=== PATIENT | female | born 1995 | race Caucasian/White ===

== ENCOUNTER → 2021-09-02 | Outpatient (CLI) | payer OTHER, BC ==
[~2021-09-02] MED LIST: AZIT250 PO
== END | disposition home or self-care (01) ==
LOC: LAB SHORT 12:25 → LAB 12:25
DX: Z34.03 Encounter for supervision of normal first pregnancy, third trimester (principal); Z3A.36 36 weeks gestation of pregnancy
CPT/HCPCS: 87081; 87150

== ENCOUNTER 2021-09-25 06:34 | Inpatient (IN) | payer OTHER, BC ==
[~2021-09-25] VITALS: Ht 154.9 cm; Wt 87.7 kg
[2021-09-25] MEDS ORDERED: PRENATAL TABLE1 EAC2 PO (07:53)
[2021-09-25] MEDS ORDERED: OMEP20ER PO (07:54)
[2021-09-25 08:06] LABS: BASOPHILS ABSOLUTE AUTO 0.04 K/mm3 (0.00-0.23); BASOPHILS PERCENT AUTO 0 % (0-2); EOSINOPHILS ABSOLUTE AUTO 0.03 K/mm3 (0.00-0.68); EOSINOPHILS PERCENT AUTO 0 % (0-6); Hematocrit 38.7 % (33.0-51.0); Hemoglobin 13.5 g/dL (11.5-16.0); IMMATURE GRAN ABSOLUTE AUTO 0.16 K/mm3 (0.00-0.10); IMMATURE GRAN PERCENT AUTO 2 % (0-1); LYMPHOCYTES ABSOLUTE AUTO 1.23 K/mm3 (0.84-5.20); LYMPHOCYTES PERCENT AUTO 12 % (21-46); MONOCYTES ABSOLUTE AUTO 0.63 K/mm3 (0.16-1.47); MONOCYTES PERCENT AUTO 6 % (4-13); Mean Corpuscular HGB 30.6 pg (26.0-34.0); Mean Corpuscular HGB Conc 34.9 g/dL (31.5-36.5); Mean Corpuscular Volume 88 fL (80-100); Mean Platelet Volume 11.7 fL (9.1-12.4); NEUTROPHILS ABSOLUTE AUTO 7.86 K/mm3 (1.96-9.15); NEUTROPHILS PERCENT AUTO 79 % (41-73); Platelet Count 147 K/mm3 (150-400); RDW Coefficient Variation 13.6 % (11.7-14.2); RDW Standard Deviation 43.2 fL (35.1-46.3); Red Blood Cell Count 4.41 M/mm3 (3.80-5.20); White Blood Cell Count 9.95 K/mm3 (4.00-11.30)
[2021-09-25 08:56] LABS: Influenza A, PCR NEGATIVE (NEGATIVE); Influenza B, PCR NEGATIVE (NEGATIVE); Resp Syncytial Virus, PCR NEGATIVE (NEGATIVE); SARS-Cov-2 (COVID-19) PCR, MMC NEGATIVE (NEGATIVE)
[2021-09-26 05:51] LABS: BASOPHILS ABSOLUTE AUTO 0.03 K/mm3 (0.00-0.23); BASOPHILS PERCENT AUTO 0 % (0-2); EOSINOPHILS ABSOLUTE AUTO 0.04 K/mm3 (0.00-0.68); EOSINOPHILS PERCENT AUTO 0 % (0-6); Hematocrit 33.4 % (33.0-51.0); Hemoglobin 11.7 g/dL (11.5-16.0); IMMATURE GRAN ABSOLUTE AUTO 0.13 K/mm3 (0.00-0.10); IMMATURE GRAN PERCENT AUTO 1 % (0-1); LYMPHOCYTES ABSOLUTE AUTO 1.11 K/mm3 (0.84-5.20); LYMPHOCYTES PERCENT AUTO 8 % (21-46); MONOCYTES ABSOLUTE AUTO 0.96 K/mm3 (0.16-1.47); MONOCYTES PERCENT AUTO 7 % (4-13); Mean Corpuscular Volume 89 fL (80-100); Mean Platelet Volume 11.9 fL (9.1-12.4); NEUTROPHILS PERCENT AUTO 85 % (41-73); Platelet Count 127 K/mm3 (150-400); RDW Coefficient Variation 13.6 % (11.7-14.2); RDW Standard Deviation 43.9 fL (35.1-46.3); Red Blood Cell Count 3.77 M/mm3 (3.80-5.20); White Blood Cell Count 14.77 K/mm3 (4.00-11.30)
[2021-09-26] MEDS ORDERED: IBUP800 PO (08:33)
[2021-09-26] MEDS ORDERED: ACET500 PO (08:33)
--- NOTE | 2021-09-26 11:14 | NUR ---
CHELO-TRANSPLANTER ORCHID HERE TO SEE PATIENT
--- NOTE | 2021-09-26 14:32 | NUR ---
PT STATES NIPPLES ARE EXTREMELY SORE USING LANSINOH AFTER EACH FEED, GEL PADS GIVEN AND SHE IS USING A NIPPLE SHIELD, ASSESSED NB LATCH LIPS FLARED GOOD LATCH BUT APPEARS TO BE TONGUE THRUSTING AND PUSHING OUT THE NIPPLE ENCOURAGED TO CONTINUE PUTTING BABY BACK TO BREAST AND TO WATCH THAT NB LIPS ARE FLARED AROUND NIPPLE
--- NOTE | 2021-09-26 15:07 | NUR ---
REPT TO Catrachito CUELLAR RN
--- NOTE | 2021-09-26 17:31 | NUR ---
SPOKE WITH DR UMANZOR VIA PHONE. PATIENT REQUESTING A DISCHARGE HOME. DR UMANZOR STATKES IT'S OK FOR HER TO GO HOME AND SHE WILL PUT IN A DISCHARGE ORDER. DR UMANZOR STATES PATIENT CAN TAKE IBUPROFEN OVER THE COUNTER FOR PAIN AND CAN HAVE NEWMANS OINTMENT FROM THE [facility]
--- NOTE | 2021-09-26 20:00 | NUR ---
RN WALKED PT OUT TO CAR. PT AMBULATED WELL. FOB HAS NB IN CAR SEAT. NB PLACED IN CAR REAR FACED. PT IS AWARE OF POST FOLLOW UP VISIT/NB VISIT.
== END 2021-09-26 19:18 | disposition home or self-care (01) | DRG 807 ==
LOC: OBS 06:34 → BC 06:35 → OBS 07:03 → BC 07:05
PROVIDERS: ADMIT Obstetrics & Gynecology
PROC: 10E0XZZ Delivery of Products of Conception, External Approach (ICD-10-PCS; principal; 2021-09-25)
PROC: 0HQ9XZZ Repair Perineum Skin, External Approach (ICD-10-PCS; 2021-09-25)
PROC: 3E0R3BZ Introduction of Anesthetic Agent into Spinal Canal, Percutaneous Approach (ICD-10-PCS; 2021-09-25)
DX: O48.0 Post-term pregnancy (principal); Z37.0 Single live birth; Z3A.40 40 weeks gestation of pregnancy; Z20.822 Contact with and (suspected) exposure to COVID-19; O70.0 First degree perineal laceration during delivery; Z88.0 Allergy status to penicillin; Z79.899 Other long term (current) drug therapy
CPT/HCPCS: 0241U; 36415; 51702; 85025; 86850; 86900; 86901; A9270; J1885; J2001; J2590; J3010; J7120

== ENCOUNTER → 2023-06-17 | Outpatient (CLI) | payer OTHER ==
[~2023-06-17] MED LIST changes: +ACET500 PO; +IBUP800 PO; +OMEP20ER PO; +PRENATAL TABLE1 EAC2 PO
== END ==
LOC: LAB 09:00 → LAB SHORT 09:00
PROVIDERS: Family Medicine
DX: Z01.419 Encounter for gynecological examination (general) (routine) without abnormal findings (principal)
CPT/HCPCS: G0123